=== PATIENT | female | born 1960 | race Caucasian/White ===

== ENCOUNTER 2020-06-20 19:32 | Emergency (ER) | payer BC ==
[~2020-06-20] VITALS: Ht 152.4 cm; Wt 63.6 kg
[2020-06-20 20:05] VITALS: BP 168/84
--- NOTE | 2020-06-20 21:01 | RAD ---
Examination: ELBOW RIGHT 3V History: Reason: r elbow pain Comparison/Correlation: None Findings: Total 3 images right elbow were obtained. Joint spaces are normal. No fracture or bone destruction. No definite fat pads present to suggest joint effusion. Soft tissues are grossly unremarkable. No significant degenerative change. Impression: No suspicious process. Electronically signed by: Suman Riggs MD (06/20/2020 8:58 PM) [id number]
--- NOTE | 2020-06-20 21:29 | PHYS DOC ---
Past Medical History Past Medical History: Hypertension Additional Past Medical Histor: UNKNOWN PSYCH HX Past Surgical History: Other Additional Past Surgical Histo: SUPRAPUBIC CATHETER, FRACTURE REPAIR R. WRIST Smoking Status: Never Smoker Alcohol Use: None General Adult EDM: Chief Complaint: UPPER EXTREMITY PAIN HPI: HPI: Patient is a 60 year old female, accompanied by her , who presents to the emergency department with complaints of right elbow pain after she fell while getting out of her car this evening. She denies any pain at rest however she states that she moves her arm she has severe pain with movement. She denies any numbness, tingling, or weakness of the affected extremity. Review of Systems: Review of Systems: Constitutional: Denies fever or chills. [] Musculoskeletal: Denies back pain; see HPI Integument: Denies rash. [] Neurologic: Denies focal weakness or sensory changes. [] Psychiatric: Denies depression or anxiety. [] Heart Score: Risk Factors: Risk Factors: DM, Current or recent (<one month) smoker, HTN, HLP, family history of CAD, obesity. Risk Scores: Score 0 - 3: 2.5% MACE over next 6 weeks - Discharge Home Score 4 - 6: 20.3% MACE over next 6 weeks - Admit for Clinical Observation Score 7 - 10: 72.7% MACE over next 6 weeks - Early Invasive Strategies Allergies: Allergies: Allergies Coded Allergies Type Severity Reaction Last Updated Verified cephalexin Allergy Mild RASH 06/20/20 Yes Physical Exam: PE: Constitutional: Well developed, well nourished, no acute distress, non-toxic appearance. [] HENT: Normocephalic, atraumatic, bilateral external ears normal, oropharynx moist, no oral exudates, nose normal. [] Eyes: PERRLA, EOMI, conjunctiva normal, no discharge. [] Neck: Normal range of motion, no tenderness, supple, no stridor. [] Cardiovascular:Heart rate regular rhythm, no murmur [] Lungs & Thorax: Bilateral breath sounds clear to auscultation [] Abdomen: Bowel sounds normal, soft, no tenderness, no masses, no pulsatile masses. [] Skin: Warm, dry, no erythema, no rash. [] Back: No tenderness, no CVA tenderness. [] Extremities: No tenderness, no cyanosis, no clubbing, ROM intact, no edema. [] Neurologic: Alert and oriented X 3, normal motor function, normal sensory function, no focal deficits noted. [] Psychologic: Affect normal, judgement normal, mood normal. [] Current Patient Data: Vital Signs: Vital Signs Date Time Temp Pulse Resp B/P (MAP) Pulse Ox O2 Delivery O2 Flow Rate FiO2 06/20/20 20:05 99.0 88 20 168/84 (112) 93 Room Air 99.0 EKG: EKG: [] Radiology/Procedures: Radiology/Procedures: PROCEDURE: ELBOW RIGHT 3V Examination: ELBOW RIGHT 3V History: Reason: r elbow pain Comparison/Correlation: None Findings: Total 3 images right elbow were obtained. Joint spaces are normal. No fracture or bone destruction. No definite fat pads present to suggest joint effusion. Soft tissues are grossly unremarkable. No significant degenerative change. Impression: No suspicious process.[] Course & Med Decision Making: Course & Med Decision Making Pertinent Labs and Imaging studies reviewed. (See chart for details) 60-year-old female presents to the emergency department for evaluation of left elbow pain after a fall while getting out of her vehicle this evening. X-ray of left elbow revealed no acute findings. Patient was placed in a sling and advised to take Tylenol or ibuprofen as needed for pain, recommend ice and elevation. Follow-up with primary care doctor Dr. Frias if symptoms persist. Patient verbalized an understanding of home care, medications, follow-up, and return to ED instructions and was in agreement with the plan of care. [] Dragon Disclaimer: Dragon Disclaimer: This electronic medical record was generated, in whole or in part, using a voice recognition dictation system. Departure Departure Impression: Primary Impression: Pain and swelling of left elbow Disposition: 01 HOME, SELF-CARE Condition: STABLE Referrals: CARINA PETERSON DO (PCP) LATIA FRIAS MD Patient Instructions: Elbow Contusion, [id number] Additional Instructions: You can take Tylenol or ibuprofen as needed for pain. Recommend application of ice, elevation, and rest of affected extremity. Wear the sling that was placed a s needed for comfort. Follow-up with your primary care doctor or Dr. Frias if symptoms persist. Return to the ER if your symptoms worsen. Justicifation of Admission Dx: Justifications for Admission: Justification of Admission Dx: N/A Splinting Splinting : Location: Left arm Pre-Made Type: Sling Pre-Proc Neuro Vasc Exam: normal Post-Proc Neuro Vasc Exam: normal, unchanged from pre-exam OLESYA ESQUIVEL APRN Jun 20, 2020 21:28
== END 2020-06-20 21:55 | disposition home or self-care (01) ==
LOC: ER 19:32
DX: G89.11 Acute pain due to trauma (principal); M25.521 Pain in right elbow; M79.89 Other specified soft tissue disorders; I10 Essential (primary) hypertension; Z98.890 Other specified postprocedural states; Z88.1 Allergy status to other antibiotic agents
CPT/HCPCS: 73080; 99283; A4565